=== PATIENT | female | born 1975 | race Caucasian/White ===

== ENCOUNTER → 2017-01-12 | Outpatient (CLI) | payer MEDICAID ==
[~2017-01-12] MED LIST: ABILIFY20 MG PO; BUSPAR PO; CHONDROITIN PO; KLONOPIN 1MG1 MG PO; LAMICTAL 100MG100 MG PO; LAMICTAL PO; LITHIUM 30300 MG/CAP PO; PRENATAL VITAMI1 TA5 PO; WELLBUTRIN SR150 M1 PO; WELLBUTRIN XL150 MG PO
== END ==
LOC: BHSO 15:24
DX: F31.73 Bipolar disorder, in partial remission, most recent episode manic (principal)

== ENCOUNTER → 2017-08-21 | Outpatient (CLI) | payer MEDICAID | LOC: BHSO 15:32 | DX: F31.73 Bipolar disorder, in partial remission, most recent episode manic (principal) ==

== ENCOUNTER → 2018-01-26 | Outpatient (CLI) | payer MEDICAID | LOC: BHSO 08:05 | DX: F31.81 Bipolar II disorder (principal) | CPT/HCPCS: G0463 ==

== ENCOUNTER 2019-05-08 10:45 | Emergency (ER) | payer MEDICAID ==
[~2019-05-08] VITALS: Ht 152.4 cm; Wt 45.5 kg
[2019-05-08] MEDS ORDERED: EFFEXOR XR75 MG/CAP PO (10:55)
[2019-05-08 11:17] LABS: COLLECTION METHOD CLEAN CATCH
[2019-05-08 11:20] LABS: BASO # 0.1 (0.0-0.2); EOS # 0.1 (0.0-0.7); EOS % 1.2 % (0-4.0); GRAN # 3.2 (1.4-6.5); GRAN % 63.7 % (42.2-75.2); HEMATOCRIT 40.6 % (37.0-47.0); LYMPH # 1.3 (1.2-3.4); LYMPH % 26.1 % (20.0-51.0); MEAN CELL VOLUME 91 fl (80.0-100.0); MEAN CORPUSCULAR HEMOGLOBIN 29 pg (27.0-31.0); MEAN CORPUSCULAR HGB CONC 32 g/dl (33.0-37.0); MEAN PLATELET VOLUME 9.1 fl (7.4-10.4); MONO # 0.4 (0.1-0.6); MONO % 7.8 % (1.7-9.3); PLATELET COUNT 325 K/mm3 (130-400); RED BLOOD COUNT 4.44 M/mm3 (4.10-5.30); REDCELL DISTRIBUTION WIDTH-CV 12.7 % (11.5-14.5)
[2019-05-08 11:35] LABS: ALBUMIN 4.4 gm/dL (3.5-5.0); BILIRUBIN,TOTAL 0.3 mg/dL (0.0-1.0); CALCIUM 9.5 mg/dL (8.4-10.2); CREATININE, serum 0.75 (0.52-1.25); TOTAL PROTEIN 7.8 gm/dL (6.4-8.2)
[2019-05-08 11:38] LABS: MUCOUS Present /lpf; PH 6 (5-8); SQUAMOUS EPITHELIAL 0-2 /hpf; URINE APPEARANCE Clear; URINE BACTERIA Rare /hpf; URINE BILIRUBIN Negative (NEGATIVE); URINE BLOOD 1+ (NEGATIVE); URINE COLOR Yellow; URINE GLUCOSE Negative (NEGATIVE); URINE KETONE Negative (NEGATIVE); URINE LEUKOCYTE ESTERASE Negative (NEGATIVE); URINE NITRATE Negative (NEGATIVE); URINE PROTEIN(semi-quant) Negative (NEGATIVE); URINE UROBILINOGEN Negative (NEGATIVE)
[2019-05-08 12:00] LABS: TRICYCLIC ANTIDEPRESS URINE NEGATIVE
[2019-05-08 12:05] LABS: TSH w REFLEX 3.41 uIU/mL (0.465-4.680)
[2019-05-08] MEDS ORDERED: ATIVAN 0.50.5 MG/TAB PO (12:27)
[2019-05-08 14:30] VITALS: BP 113/73; PULSE 82; TEMP 97.9
== END 2019-05-08 14:35 | disposition home or self-care (01) ==
LOC: COL.ER 10:45
PROVIDERS: Emergency Medicine
DX: N93.9 Abnormal uterine and vaginal bleeding, unspecified (principal); F15.10 Other stimulant abuse, uncomplicated; F31.9 Bipolar disorder, unspecified
CPT/HCPCS: J2060; J7030

== ENCOUNTER 2020-05-27 19:03 | Emergency (ER) | payer MEDICAID ==
[~2020-05-27] VITALS: Ht 152.4 cm; Wt 54.5 kg
[~2020-05-27 19:03] MED LIST changes: +ATIVAN 0.50.5 MG/TAB PO; +EFFEXOR XR75 MG/CAP PO
[2020-05-27 19:45] LABS: BASO # 0.1 (0.0-0.2); BASO % 0.5 % (0.0-2.0); EOS # 0.1 (0.0-0.7); EOS % 1.5 % (0-4.0); GRAN # 7.3 (1.4-6.5); HEMOGLOBIN 10.7 g/dl (12.5-16.0); LYMPH # 1.3 (1.2-3.4); LYMPH % 13.4 % (20.0-51.0); MEAN CELL VOLUME 85 fl (80.0-100.0); MEAN CORPUSCULAR HEMOGLOBIN 27 pg (27.0-31.0); MEAN CORPUSCULAR HGB CONC 32 g/dl (33.0-37.0); MEAN PLATELET VOLUME 9.9 fl (7.4-10.4); MONO # 0.6 (0.1-0.6); MONO % 6.3 % (1.7-9.3); PLATELET COUNT 330 K/mm3 (130-400); RED BLOOD COUNT 4.01 M/mm3 (4.10-5.30); REDCELL DISTRIBUTION WIDTH-CV 13.7 % (11.5-14.5)
[2020-05-27 19:52] LABS: COLLECTION METHOD CLEAN CATCH
[2020-05-27 19:57] LABS: ALANINE AMINOTRANSFERASE 12 U/L (4-34); ALBUMIN 4.5 gm/dL (3.5-5.0); ALCOHOL(ethanol),MEDICAL 121 mg/dL; ALKALINE PHOSPHATASE 49 U/L (50-136); ANION GAP 11 mmol/L (7-16); AST,SGOT 32 U/L (15-37); BILIRUBIN,TOTAL 0.3 mg/dL (0.0-1.0); BLOOD UREA NITROGEN 15 mg/dL (7-17); CARBON DIOXIDE 19 mmol/L (22-30); CHLORIDE 108 mmol/L (98-107); CREATININE, serum 0.78 (0.52-1.25); GLUCOSE 109 mg/dL (74-106); SODIUM 138 mmol/L (137-145); TOTAL PROTEIN 7.8 gm/dL (6.4-8.2)
[2020-05-27 19:58] LABS: ACETAMINOPHEN < 10 ug/mL (10-30); SALICYLATE < 1.0 mg/dL
[2020-05-27 19:59] LABS: MUCOUS Present /lpf; PH 5 (5-8); SQUAMOUS EPITHELIAL None Seen /hpf; URINE APPEARANCE Clear; URINE BACTERIA None Seen /hpf; URINE BILIRUBIN Negative (NEGATIVE); URINE BLOOD 1+ (NEGATIVE); URINE COLOR Yellow; URINE GLUCOSE Negative (NEGATIVE); URINE KETONE Negative (NEGATIVE); URINE LEUKOCYTE ESTERASE Negative (NEGATIVE); URINE NITRATE Negative (NEGATIVE); URINE PROTEIN(semi-quant) 1+ (NEGATIVE); URINE RBC 0-2 /hpf; URINE UROBILINOGEN Negative (NEGATIVE)
[2020-05-27 20:08] LABS: TRICYCLIC ANTIDEPRESS URINE NEGATIVE
[2020-05-27] MEDS ORDERED: SYNTHROID 0.0.025 MG PO (20:35)
[2020-05-27 21:19] VITALS: BP 118/74; PULSE 76; TEMP 98.6
== END 2020-05-27 21:43 | disposition home or self-care (01) ==
LOC: COL.ER 19:03
PROVIDERS: Nurse Practitioner Primary Care
DX: S00.83XA Contusion of other part of head, initial encounter (principal); F31.9 Bipolar disorder, unspecified; F17.210 Nicotine dependence, cigarettes, uncomplicated; Z79.890 Hormone replacement therapy; Y04.8XXA Assault by other bodily force, initial encounter; Y92.009 Unspecified place in unspecified non-institutional (private) residence as the place of occurrence of the external cause